=== PATIENT | male | born 1965 | race Caucasian/White ===

== ENCOUNTER 2017-06-05 21:06 | Emergency (ER) | payer SELFPAY ==
[~2017-06-05] VITALS: Ht 180.3 cm; Wt 90.9 kg
[2017-06-05 21:06] VITALS: BP 118/68; PULSE 56; RESP 16; TEMP 97.6; O2SAT 99
[~2017-06-05 21:06] MED LIST: DOXY100T PO; PENI500T PO; SULF-154 PO; SULF1TAB47 PO; TYLE3 PO; Z.0.NO CURRENT MEDS
[2017-06-05] MEDS ORDERED: SODIUM CHLOR 0.9% 1000 ML INJ 1,000 ML IV ONE ×2 (21:09→21:15)
[2017-06-05] MEDS ORDERED: SODIUM CHLORIDE 0.9% FLUSH 10 ML FLUSH IVF PRN (21:15)
[2017-06-05] MEDS ORDERED: ONDANSETRON HCL 4 MG/2 ML VIAL IVP ONE (21:15)
--- NOTE | 2017-06-05 21:15 | PD ---
HPI Chief Complaint: N/V, Dizziness Time Seen by Provider: 21:08 (Isaías Amezcua MD) Travel History International Travel<30 days: No Contact w/Intl Traveler<30days: No (Isaías Amezcua MD) History of Present Illness HPI The patient's 51 years old and arrives to the ER by EMS. 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 Multiple episodes of vomiting reported. No loss of consciousness. The patient denies chest pain and shortness of breath. He denies abdominal pain and he also states that her no similar prior events have come to pass. Upon arrival history somewhat limited 2/2 historian. (Isaías Amezcua MD) [facility] Social History Alcohol Use: No Tobacco Use: Yes (1-2 PPD) Substance Use: No (Isaías Amezcua MD) Allergies-Medications (Allergen,Severity, Reaction): Coded Allergies: No Known Allergies (Verified Allergy, Mild, 06/05/17) Reported Meds & Prescriptions Reported Meds & Active Scripts Active Ativan (Lorazepam) 1 Mg Tab 1 Mg PO Q6H PRN (Ángel Lake MD) Review of Systems Except as stated in HPI: all other systems reviewed are Neg (Isaías Amezcua MD) Physical Exam Narrative GENERAL: 51-year-old male well-nourished well-developed mild to moderate distress somewhat pale Vital Signs Date Time Temp Pulse Resp B/P (MAP) Pulse Ox O2 Delivery O2 Flow Rate FiO2 06/06/17 00:30 66 16 115/82 (93) 98 06/05/17 23:42 59 16 120/87 (98) 100 Room Air 06/05/17 22:16 56 16 119/85 (96) 100 Room Air 06/05/17 21:41 58 18 111/72 (85) 98 Room Air 06/05/17 21:06 56 99 Room Air 06/05/17 21:06 97.6 56 16 118/68 (85) 99 SKIN: Warm and dry. HEAD: Atraumatic. Normocephalic. EYES: Pupils equal and round. No scleral icterus. No injection or drainage. No nystagmus. ENT: No nasal bleeding or discharge. Mucous membranes pink and moist. NECK: Trachea midline. No JVD. CARDIOVASCULAR: Regular rate and rhythm. RESPIRATORY: No accessory muscle use. Clear to auscultation. Breath sounds equal bilaterally. GASTROINTESTINAL: Abdomen soft, non-tender, nondistended. Hepatic and splenic margins not palpable. MUSCULOSKELETAL: Extremities without clubbing, cyanosis, or edema. No obvious deformities. NEUROLOGICAL: Cranial nerves III through XII are normal. Speech memory mentation normal. Normal motor function throughout. PSYCHIATRIC: Appropriate mood and affect; insight and judgment normal. (Isaías Amezcua MD) Data Data Last Documented VS Vital Signs Date Time Temp Pulse Resp B/P (MAP) Pulse Ox O2 Delivery O2 Flow Rate FiO2 06/06/17 00:30 66 16 115/82 (93) 98 06/05/17 23:42 Room Air 06/05/17 21:06 97.6 (Ángel Lake MD) Orders Orders Electrocardiogram (06/05/17 21:09) Complete Blood Count With Diff (06/05/17 21:09) Comprehensive Metabolic Panel (06/05/17 21:09) Magnesium (Mg) (06/05/17 21:09) Ckmb (Isoenzyme) Profile (06/05/17 21:09) Troponin I (06/05/17 21:09) Chest, Single Ap (06/05/17 21:09) Ecg Monitoring (06/05/17 21:09) Iv Access Insert/Monitor (06/05/17 21:09) Oximetry (06/05/17 21:09) Ondansetron Inj (Zofran Inj) (06/05/17 21:15) Sodium Chloride 0.9% Flush (Ns Flush) (06/05/17 21:15) Sodium Chlor 0.9% 1000 Ml Inj (Ns 1000 M (06/05/17 21:09) Sodium Chlor 0.9% 1000 Ml Inj (Ns 1000 M (06/05/17 21:15) Ct Brain W/O Iv Contrast(Rout) (06/05/17 ) CKMB (06/05/17 21:20) CKMB% (06/05/17 21:20) Naloxone Inj (Narcan Inj) (06/05/17 22:15) Drug Screen, Random Urine (06/05/17 22:29) Lorazepam Inj (Ativan Inj) (06/05/17 23:45) Ed Discharge Order (06/06/17 00:08) Mandatory Outpatient Referral (06/06/17 00:08) (Ángel Lake MD) Labs Laboratory Tests Test 06/05/17 21:20 06/05/17 22:25 White Blood Count 11.0 TH/MM3 Red Blood Count 5.25 MIL/MM3 Hemoglobin 14.9 GM/DL Hematocrit 44.7 % Mean Corpuscular Volume 85.2 FL Mean Corpuscular Hemoglobin 28.5 PG Mean Corpuscular Hemoglobin Concent 33.4 % Red Cell Distribution Width 12.9 % Platelet Count 355 TH/MM3 Mean Platelet Volume 8.6 FL Neutrophils (%) (Auto) 66.3 % Lymphocytes (%) (Auto) 23.7 % Monocytes (%) (Auto) 5.0 % Eosinophils (%) (Auto) 3.7 % Basophils (%) (Auto) 1.3 % Neutrophils # (Auto) 7.4 TH/MM3 Lymphocytes # (Auto) 2.6 TH/MM3 Monocytes # (Auto) 0.5 TH/MM3 Eosinophils # (Auto) 0.4 TH/MM3 Basophils # (Auto) 0.1 TH/MM3 CBC Comment DIFF FINAL Differential Comment Blood Urea Nitrogen 6 MG/DL Creatinine 1.20 MG/DL Random Glucose 142 MG/DL Total Protein 7.7 GM/DL Albumin 3.9 GM/DL Calcium Level 8.5 MG/DL Magnesium Level 1.8 MG/DL Alkaline Phosphatase 88 U/L Aspartate Amino Transf (AST/SGOT) 14 U/L Alanine Aminotransferase (ALT/SGPT) 19 U/L Total Bilirubin 0.4 MG/DL Sodium Level 140 MEQ/L Potassium Level 4.3 MEQ/L Chloride Level 107 MEQ/L Carbon Dioxide Level 23.3 MEQ/L Anion Gap 10 MEQ/L Estimat Glomerular Filtration Rate 64 ML/MIN Total Creatine Kinase 121 U/L Creatine Kinase MB 1.2 NG/ML Troponin I LESS THAN 0.02 NG/ML Urine Opiates Screen NEG Urine Barbiturates Screen NEG Urine Amphetamines Screen NEG Urine Benzodiazepines Screen NEG Urine Cocaine Screen NEG Urine Cannabinoids Screen POS (Ángel Lake MD) MDM Medical Decision Making Medical Screen Exam Complete: Yes Emergency Medical Condition: Yes Medical Record Reviewed: Yes Differential Diagnosis vertigo of central etiology, vertigo of peripheral etiology, electrolyte imbalance, opioid intoxication Narrative Course CBC & BMP Diagram 06/05/17 21:20 Total Protein 7.7, Albumin 3.9, Calcium Level 8.5, Magnesium Level 1.8, Alkaline Phosphatase 88, Aspartate Amino Transf (AST/SGOT) 14 L, Alanine Aminotransferase (ALT/SGPT) 19, Total Bilirubin 0.4 UTox positive for marijuana EKG: sinus rate Pt observed for approximately three hours. Increasingly pt able to provide additional historical details including dizziness c/w vertigo Overall presentation c/w peripheral vertigo Ativan script Follow up with ENT Pt reports hx of personal stress lately and wonders if it may be related to presentation (Isaías Amezcua MD) Medical Record Reviewed: No Differential Diagnosis pt seen by another attending I only entered diagnosis for d/c pt (Ángel Lake MD) Diagnosis Primary Impression: Dizziness Additional Impression: Anxiety Scripts Lorazepam (Ativan) 1 Mg Tab 1 MG PO Q6H Y for VERTIGO, #20 TAB 0 Refills Prov: Isaías Amezcua MD 06/06/17 Disposition: 01 DISCHARGE HOME Condition: Stable Isaías Amezcua MD Jun 05, 2017 21:15 Ángel Lake MD Jun 06, 2017 00:20
[2017-06-05 21:32] LABS: AUTOMATED NEUTROPHIL # 7.4 TH/MM3 (1.8-7.7); BASOPHIL # 0.1 TH/MM3 (0-0.2); BASOPHIL % 1.3 % (0.0-2.0); EOSINOPHIL # 0.4 TH/MM3 (0-0.4); EOSINOPHIL % 3.7 % (0.0-4.0); HEMATOCRIT 44.7 % (39.0-51.0); HEMOGLOBIN 14.9 GM/DL (13.0-17.0); LYMPH % 23.7 % (9.0-44.0); LYMPHOCYTE # 2.6 TH/MM3 (1.0-4.8); MEAN CELL VOLUME 85.2 FL (80.0-100.0); MEAN CORPUSCULAR HEMOGLOBIN 28.5 PG (27.0-34.0); MEAN CORPUSCULAR HGB CONC 33.4 % (32.0-36.0); MEAN PLATELET VOLUME 8.6 FL (7.0-11.0); MONOCYTE # 0.5 TH/MM3 (0-0.9); NEUT % 66.3 % (16.0-70.0); PLATELET COUNT 355 TH/MM3 (150-450); RED BLOOD COUNT 5.25 MIL/MM3 (4.50-5.90); RED CELL DISTRIBUTION WIDTH 12.9 % (11.6-17.2)
[2017-06-05 21:41] VITALS: BP 111/72; PULSE 58; RESP 18; O2SAT 98
[2017-06-05 21:41] LABS: CHLORIDE 107 MEQ/L (98-107); SODIUM (NA) 140 MEQ/L (136-145)
[2017-06-05 21:44] LABS: CALCIUM 8.5 MG/DL (8.5-10.1)
[2017-06-05 21:45] LABS: ALBUMIN 3.9 GM/DL (3.4-5.0); BICARBONATE 23.3 MEQ/L (21.0-32.0); BLOOD UREA NITROGEN 6 MG/DL (7-18); GLUCOSE,RANDOM 142 MG/DL (74-106); MAGNESIUM 1.8 MG/DL (1.5-2.5)
[2017-06-05 21:48] LABS: ALT (GPT) 19 U/L (12-78); AST (GOT) 14 U/L (15-37); GLOMERULAR FILTRATION RATE 64 ML/MIN (>89)
[2017-06-05 21:49] LABS: TOTAL BILIRUBIN ADULT 0.4 MG/DL (0.2-1.0); TOTAL PROTEIN 7.7 GM/DL (6.4-8.2)
[2017-06-05 21:51] LABS: ALKALINE PHOSPHATASE 88 U/L (45-117)
[2017-06-05 21:53] LABS: TROPONIN I LESS THAN 0.02 NG/ML (0.02-0.05)
[2017-06-05] MEDS ORDERED: NALOXONE HCL 2 MG/2 ML VIAL IV PUSH ONE (22:15)
[2017-06-05 22:16] VITALS: BP 119/85; PULSE 56; RESP 16; O2SAT 100
--- NOTE | 2017-06-05 22:28 | RADRPT ---
EXAM DATE/TIME: 06/05/2017 21:29 [facility] COMPARISON: No previous studies available for comparison. INDICATIONS : Acute onset dizziness; altered mental status. RADIATION DOSE: 59.35 CTDIvol (mGy) MEDICAL HISTORY : None SURGICAL HISTORY : None. ENCOUNTER: Initial ACUITY: 1 day PAIN SCALE: 0/10 LOCATION: cranial TECHNIQUE: Multiple contiguous axial images were obtained of the head. Using automated exposure control and adj ustment of the mA and/or kV according to patient size, radiation dose was kept as low as reasonably a chievable to obtain optimal diagnostic quality images. DICOM format image data is available electro nically for review and comparison. FINDINGS: CEREBRUM: The ventricles are normal for age. No evidence of midline shift, mass lesion, hemorrhage or acute in farction. No extra-axial fluid collections are seen. POSTERIOR FOSSA: The cerebellum and brainstem are intact. The 4th ventricle is midline. The cerebellopontine angle i s unremarkable. EXTRACRANIAL: The visualized portion of the orbits is intact. SKULL: The calvaria is intact. No evidence of skull fracture. CONCLUSION: 1. Negative noncontrast CT brain. Jeff Angeles MD on June 05, 2017 at 22:26 Board Certified Radiologist. This report was verified electronically.
--- NOTE | 2017-06-05 22:32 | RADRPT ---
EXAM DATE/TIME: 06/05/2017 21:38 [facility] COMPARISON: No previous studies available for comparison. INDICATIONS : Short of breath. Palpitations. MEDICAL HISTORY : None. SURGICAL HISTORY : None. ENCOUNTER: Initial ACUITY: 1 day PAIN SCORE: 0/10 LOCATION: Bilateral chest FINDINGS: A single view of the chest demonstrates the lungs to be symmetrically aerated without evidence of mas s, infiltrate or effusion. No evidence of pneumothorax. The cardiomediastinal contours are unremark able. Osseous structures are intact. CONCLUSION: The lungs are clear. Jeff Angeles MD on June 05, 2017 at 22:30 Board Certified Radiologist. This report was verified electronically.
[2017-06-05 23:42] VITALS: BP 120/87; PULSE 59; RESP 16; O2SAT 100
[2017-06-05] MEDS ORDERED: LORazepam 2 MG/ML VIAL IV PUSH ONE (23:45)
[2017-06-06] MEDS ORDERED: LORA-474 PO (00:11)
[2017-06-06 00:30] VITALS: BP 115/82
--- NOTE | 2017-06-06 11:34 | EKG ---
Date Performed: 06/05/2017 Time Performed: 21:22:21 PTAGE: 51 years EKG: SINUS BRADYCARDIA BORDERLINE ECG NO PREVIOUS TRACING DOCTOR: Skyler Martinez Interpretating Date/Time 06/06/2017 11:33:21
== END 2017-06-06 00:36 | disposition home or self-care (01) ==
LOC: PHED 21:06
DX: R42 Dizziness and giddiness (principal); F41.9 Anxiety disorder, unspecified; R00.1 Bradycardia, unspecified; F17.210 Nicotine dependence, cigarettes, uncomplicated
CPT/HCPCS: 70450; 71045; 80053; 80307; 82550; 82552; 83735; 84484; 85025; 93005; 96361; 96374; 96375; 99285; J2060; J2310; J2405; J7030